=== PATIENT | male | born 1955 | race Two or more races ===

== ENCOUNTER 2022-04-17 15:06 | Inpatient (IN) | payer MEDICARE, MEDICAID ==
[~2022-04-17] VITALS: Ht 165.1 cm; Wt 67.5 kg
[2022-04-17] MEDS ORDERED: DexAMETHasone SOD PHOS 10MG/1ML VIAL INJ IV ONE (15:30)
[2022-04-17] MEDS ORDERED: FUROSEMIDE 40 MG/4 ML VIAL IV ONE (15:30)
[2022-04-17] MEDS ORDERED: ALBUTEROL SULF 2.5 MG/0.5ML(0.5%) NEB SOLN HHN ONE (15:30)
[2022-04-17] MEDS ORDERED: levoFLOXacin 750MG 150 ML IV ONE (15:45)
[2022-04-17 16:26] LABS: Basophils # (auto) 0.1 10 ^3/uL (0-0.2); Basophils % (auto) 1.1 % (0.0-2.0); Eosinophils # (auto) 0.1 10 ^3/uL (0-0.8); Eosinophils % (auto) 0.9 % (0.0-7.0); Hematocrit 31.4 % (41.0-53.0); Hemoglobin 10.7 g/dL (13.5-17.5); Lymphocytes # (auto) 0.4 10 ^3/uL (0.4-5.4); Lymphocytes % (auto) 5.9 % (10.0-50.0); Mean Corpuscular Hgb Conc. 34.2 g/dL (32.0-36.0); Mean Corpuscular Volume 96.5 fL (80.0-100.0); Monocytes # (auto) 0.3 10 ^3/uL (0-1.3); Neutrophils # (auto) 5.9 10 ^3/uL (1.6-8.6); Neutrophils % (auto) 87.1 % (37.0-80.0); Red Blood Cells 3.25 10^6/uL (4.5-5.90); Red Cell Distribution Width 16.8 % (11.8-14.3); White Blood Cell 6.7 10^3/uL (4.4-10.8)
[2022-04-17 16:40] LABS: Albumin 3.5 g/dL (3.4-5.0); Calcium 8.9 mg/dL (8.5-10.1); Magnesium 2.2 mg/dL (1.6-2.6)
[2022-04-17 16:45] LABS: BUN/Creatinine Ratio 7.2; Bilirubin, Total 0.7 mg/dL (0.2-1.0); Total Protein 6.7 g/dL (6.4-8.2)
[2022-04-17] MEDS ORDERED: hydrALAZINE HCL 20 MG/ML VL IV ONE (18:00)
[2022-04-17] MEDS ORDERED: NITROGLYCERIN 0.4 MG SL TAB SL PRN (20:30)
[2022-04-17] MEDS ORDERED: ONDANSETRON HCL 4 MG/2 ML VIAL IV PRN (20:30)
[2022-04-17] MEDS ORDERED: HYDROcodone-ACET 5/325MG TAB PO PRN (20:30)
[2022-04-17] MEDS ORDERED: DEXTROSE (50%) 50ML SYRG IV PRN (20:30)
[2022-04-17] MEDS ORDERED: ACETAMINOPHEN 325 MG TAB PO PRN (20:30)
[2022-04-17] MEDS ORDERED: MORPHINE SULFATE INJ 2 MG/ml SYRG IV PRN (20:30)
[2022-04-17] MEDS ORDERED: NIFE-3 (20:34)
[2022-04-17] MEDS ORDERED: HYDR50TA15 PO (20:34)
[2022-04-17] MEDS ORDERED: FERR1TAB8 PO (20:34)
[2022-04-17] MEDS ORDERED: PANT40TA57 PO (20:34)
[2022-04-17] MEDS ORDERED: CLON0.1T PO (20:34)
[2022-04-17] MEDS ORDERED: MIN25T PO (20:34)
[2022-04-17] MEDS ORDERED: B-CO-5 PO (20:34)
[2022-04-17] MEDS ORDERED: LOSA-39 PO (20:34)
[2022-04-17] MEDS ORDERED: CARV12.544 PO (20:34)
[2022-04-17 22:12] LABS: Magnesium 2.1 mg/dL (1.6-2.6)
[2022-04-17] MEDS: ACCU-CHEK COMFORT CURVE STRIP VI SCH (22:19)
[2022-04-17 22:21] LABS: CRP High Sensitivity 1.93 mg/dL (< 0.3)
[2022-04-17] MEDS: hydrALAZINE HCL 25 MG TAB PO SCH (22:29)
[2022-04-17] MEDS: CARVEDILOL 12.5 MG TAB PO SCH (22:29)
[2022-04-17] MEDS: HEPARIN SODIUM (PORCINE) 5000 UNITS/ML 1ML VIAL SC SCH (22:31)
[2022-04-17] MEDS: InsuLIN REG 1unit/0.01ml Soln (100units/ml) SC SCH (22:33)
[2022-04-17 22:45] VITALS: BP 177/74
[2022-04-18 04:31] LABS: Anion Gap 13 (5-15); BUN/Creatinine Ratio 7.3; Blood Urea Nitrogen 37 mg/dL (7-18); Calcium 8.6 mg/dL (8.5-10.1); Carbon Dioxide 27 mmol/L (21-32); Chloride 96 mmol/L (98-107); GFR African American 15 mL/min; GFR Non-African American 12 mL/min; Glucose 132 mg/dL (74-106); Potassium 3.4 mmol/L (3.5-5.1); Sodium 136 mmol/L (136-145)
[2022-04-18 04:34] LABS: Alanine Aminotransferase 19 U/L (16-61); Alkaline Phosphatase 76 U/L (45-117); Aspartate Aminotransferase 52 U/L (15-37); Bilirubin, Total 0.5 mg/dL (0.2-1.0); Total Protein 6.3 g/dL (6.4-8.2)
[2022-04-18 05:20] LABS: Basophils # (auto) 0 10 ^3/uL (0-0.2); Basophils % (auto) 0.2 % (0.0-2.0); Eosinophils # (auto) 0 10 ^3/uL (0-0.8); Eosinophils % (auto) 0.1 % (0.0-7.0); Hematocrit 29.6 % (41.0-53.0); Hemoglobin 10.1 g/dL (13.5-17.5); Lymphocytes # (auto) 0.5 10 ^3/uL (0.4-5.4); Lymphocytes % (auto) 8.3 % (10.0-50.0); Mean Corpuscular Hemoglobin 32.7 pg (28.0-32.0); Mean Corpuscular Hgb Conc. 34.1 g/dL (32.0-36.0); Mean Corpuscular Volume 95.7 fL (80.0-100.0); Monocytes # (auto) 0.3 10 ^3/uL (0-1.3); Monocytes % (auto) 5.3 % (0.0-12.0); Neutrophils # (auto) 4.9 10 ^3/uL (1.6-8.6); Neutrophils % (auto) 86.1 % (37.0-80.0); Red Blood Cells 3.09 10^6/uL (4.5-5.90); Red Cell Distribution Width 16.6 % (11.8-14.3); White Blood Cell 5.7 10^3/uL (4.4-10.8)
[2022-04-18] MEDS: ACCU-CHEK COMFORT CURVE STRIP VI SCH ×4 (06:42→22:08)
[2022-04-18] MEDS: InsuLIN REG 1unit/0.01ml Soln (100units/ml) SC SCH ×4 (06:42→22:09)
[2022-04-18] MEDS: hydrALAZINE HCL 25 MG TAB PO SCH ×3 (07:03→21:54)
[2022-04-18] MEDS: HEPARIN SODIUM (PORCINE) 5000 UNITS/ML 1ML VIAL SC SCH (07:06)
[2022-04-18] MEDS ORDERED: HEPARIN SODIUM (PORCINE) 5000 UNITS/ML 1ML VIAL IV ONE ×2 (07:45→10:45)
[2022-04-18] MEDS ORDERED: HEPARIN DRIP/D5W 100UNITS/ML 250 ML IV SCH (07:45)
[2022-04-18 08:24] LABS: Basophils # (auto) 0 10 ^3/uL (0-0.2); Basophils % (auto) 0.6 % (0.0-2.0); Eosinophils # (auto) 0 10 ^3/uL (0-0.8); Hematocrit 29.7 % (41.0-53.0); Hemoglobin 10.5 g/dL (13.5-17.5); Lymphocytes # (auto) 0.5 10 ^3/uL (0.4-5.4); Lymphocytes % (auto) 8.7 % (10.0-50.0); Mean Corpuscular Hemoglobin 33.7 pg (28.0-32.0); Mean Corpuscular Hgb Conc. 35.3 g/dL (32.0-36.0); Mean Corpuscular Volume 95.3 fL (80.0-100.0); Monocytes # (auto) 0.4 10 ^3/uL (0-1.3); Monocytes % (auto) 7.1 % (0.0-12.0); Neutrophils # (auto) 5.2 10 ^3/uL (1.6-8.6); Neutrophils % (auto) 83.6 % (37.0-80.0); Nucleated Red Blood Cells % 0.1 %; Red Blood Cells 3.12 10^6/uL (4.5-5.90); Red Cell Distribution Width 16.5 % (11.8-14.3); White Blood Cell 6.2 10^3/uL (4.4-10.8)
[2022-04-18] MEDS: BUDESONIDE (INHALATION) 180 MCG IH IN SCH ×2 (09:07→20:18)
[2022-04-18] MEDS: ALBUTEROL SULF HFA 90MCG INH 200DOSE IN PRN ×2 (09:07→20:19)
[2022-04-18] MEDS ORDERED: POTASSIUM CHL 20 Meq TABLET PO ONE (09:45)
[2022-04-18 09:58] LABS: INR 1.2 (0.9-1.15); Partial Thromboplastin Time 35.7 sec (24.6-33.4)
[2022-04-18] MEDS: CARVEDILOL 12.5 MG TAB PO SCH ×2 (11:47→21:55)
[2022-04-18] MEDS: PANTOPRAZOLE 40 MG TAB PO SCH (11:47)
[2022-04-18] MEDS: B-COMPLEX W/ C & FOLIC ACID(NEPHROVITE TAB) PO SCH (11:47)
[2022-04-18] MEDS: FERROUS SULFATE 325mg EC TAB PO SCH (11:47)
[2022-04-18] MEDS: ZINC SULFATE 220mg CAP or TAB PO SCH (11:48)
[2022-04-18] MEDS: DexAMETHasone SOD PHOS 10MG/1ML VIAL INJ IV SCH (11:48)
[2022-04-18] MEDS: ASCORBIC ACID 1,000 MG TAB PO SCH (11:48)
[2022-04-18] MEDS: CHOLECALCIFEROL (VITD3) 2,000 UNIT CAP/TAB PO SCH (11:48)
[2022-04-18] MEDS: LOSARTAN POTASSIUM 50 MG TAB PO SCH (11:48)
[2022-04-18] MEDS: AZITHROMYCIN 500MG/ 250ML 250 ML IV SCH (11:49)
[2022-04-18] MEDS: MINOXIDIL 2.5 MG TAB PO SCH (11:49)
[2022-04-18] MEDS: cloNIDine HCL 0.1 MG TAB PO SCH (11:49)
[2022-04-18 12:00] VITALS: BP 166/65
[2022-04-18 12:20] VITALS: BP 166/65
[2022-04-18 12:35] VITALS: BP 166/65
[2022-04-18 16:38] VITALS: BP 154/74
[2022-04-18] MEDS ORDERED: ASPirin 325 MG TAB PO ONE (17:00)
[2022-04-18 20:00] VITALS: BP 152/72
[2022-04-18 20:51] LABS: INR 1.19 (0.9-1.15); Partial Thromboplastin Time 38.1 sec (24.6-33.4)
[2022-04-18 21:24] VITALS: BP 152/72
[2022-04-18] MEDS: HEPARIN DRIP/D5W 100UNITS/ML 250 ML IV SCH (21:53)
[2022-04-19] VITALS (7 sets, daily range): BP systolic 133–156; BP diastolic 45–79
[2022-04-19 03:09] LABS: Basophils # (auto) 0 10 ^3/uL (0-0.2); Basophils % (auto) 0.5 % (0.0-2.0); Eosinophils # (auto) 0 10 ^3/uL (0-0.8); Hematocrit 27.5 % (41.0-53.0); Hemoglobin 9.4 g/dL (13.5-17.5); Lymphocytes # (auto) 0.6 10 ^3/uL (0.4-5.4); Lymphocytes % (auto) 9.4 % (10.0-50.0); Monocytes # (auto) 0.5 10 ^3/uL (0-1.3); Monocytes % (auto) 7.6 % (0.0-12.0); Neutrophils # (auto) 5.4 10 ^3/uL (1.6-8.6); Neutrophils % (auto) 82.5 % (37.0-80.0); Red Blood Cells 2.84 10^6/uL (4.5-5.90); Red Cell Distribution Width 16.9 % (11.8-14.3); White Blood Cell 6.6 10^3/uL (4.4-10.8)
[2022-04-19 03:26] LABS: INR 1.18 (0.9-1.15); Partial Thromboplastin Time 43.3 sec (24.6-33.4)
[2022-04-19] MEDS: HEPARIN DRIP/D5W 100UNITS/ML 250 ML IV SCH (04:00)
[2022-04-19] MEDS ORDERED: HEPARIN DRIP/D5W 100UNITS/ML 250 ML IV SCH ×2 (05:15→11:30)
[2022-04-19] MEDS: hydrALAZINE HCL 25 MG TAB PO SCH ×3 (06:15→23:01)
[2022-04-19] MEDS: ACCU-CHEK COMFORT CURVE STRIP VI SCH ×4 (06:15→23:02)
[2022-04-19] MEDS: InsuLIN REG 1unit/0.01ml Soln (100units/ml) SC SCH ×4 (06:18→22:49)
[2022-04-19] MEDS: ALBUTEROL SULF HFA 90MCG INH 200DOSE IN PRN ×2 (06:57→20:12)
[2022-04-19] MEDS: BUDESONIDE (INHALATION) 180 MCG IH IN SCH ×2 (06:57→20:12)
[2022-04-19] MEDS ORDERED: SODIUM CHL 0.9% 1000 ML BAG XX ONE (07:00)
[2022-04-19] MEDS ORDERED: IOHEXOL 350 MG/ML 100ML IJ ONE (08:01)
[2022-04-19] MEDS: AZITHROMYCIN 500MG/ 250ML 250 ML IV SCH (10:01)
[2022-04-19 10:02] LABS: INR 1.17 (0.9-1.15); Partial Thromboplastin Time 46.3 sec (24.6-33.4)
[2022-04-19] MEDS: PANTOPRAZOLE 40 MG TAB PO SCH (10:02)
[2022-04-19] MEDS: DexAMETHasone SOD PHOS 10MG/1ML VIAL INJ IV SCH (10:02)
[2022-04-19] MEDS: CHOLECALCIFEROL (VITD3) 2,000 UNIT CAP/TAB PO SCH (10:02)
[2022-04-19] MEDS: ZINC SULFATE 220mg CAP or TAB PO SCH (10:02)
[2022-04-19] MEDS: FERROUS SULFATE 325mg EC TAB PO SCH (10:02)
[2022-04-19] MEDS: B-COMPLEX W/ C & FOLIC ACID(NEPHROVITE TAB) PO SCH (10:02)
[2022-04-19] MEDS: ASPirin 81 mg TAB PO SCH (10:03)
[2022-04-19] MEDS: cloNIDine HCL 0.1 MG TAB PO SCH (10:03)
[2022-04-19] MEDS: LOSARTAN POTASSIUM 50 MG TAB PO SCH (10:03)
[2022-04-19] MEDS: ASCORBIC ACID 1,000 MG TAB PO SCH (10:03)
[2022-04-19] MEDS: MINOXIDIL 2.5 MG TAB PO SCH (10:04)
[2022-04-19] MEDS: CARVEDILOL 12.5 MG TAB PO SCH ×2 (10:04→23:01)
[2022-04-19 18:53] LABS: INR 1.11 (0.9-1.15)
[2022-04-19 19:03] LABS: Partial Thromboplastin Time 74.5 sec (24.6-33.4)
[2022-04-19] MEDS ORDERED: ATORVASTATIN 20 MG TAB PO SCH (22:00)
[2022-04-19 23:36] LABS: INR 1.09 (0.9-1.15); Partial Thromboplastin Time 29.3 sec (24.6-33.4)
[2022-04-20] MEDS ORDERED: HEPARIN DRIP/D5W 100UNITS/ML 250 ML IV SCH ×3 (00:15→10:30)
[2022-04-20] MEDS ORDERED: HEPARIN SODIUM (PORCINE) 5000 UNITS/ML 1ML VIAL IV ONE ×2 (00:15)
[2022-04-20 05:00] VITALS: BP 163/81
[2022-04-20] MEDS: InsuLIN REG 1unit/0.01ml Soln (100units/ml) SC SCH ×2 (06:14→12:33)
[2022-04-20] MEDS: hydrALAZINE HCL 25 MG TAB PO SCH (06:20)
[2022-04-20] MEDS: ACCU-CHEK COMFORT CURVE STRIP VI SCH ×2 (06:22→12:26)
[2022-04-20] MEDS: BUDESONIDE (INHALATION) 180 MCG IH IN SCH (06:35)
[2022-04-20] MEDS: ALBUTEROL SULF HFA 90MCG INH 200DOSE IN PRN (06:54)
[2022-04-20 08:30] VITALS: BP 152/74
[2022-04-20 09:00] VITALS: BP 152/74
[2022-04-20] MEDS: FERROUS SULFATE 325mg EC TAB PO SCH (09:19)
[2022-04-20] MEDS: CHOLECALCIFEROL (VITD3) 2,000 UNIT CAP/TAB PO SCH (09:20)
[2022-04-20] MEDS: ASPirin 81 mg TAB PO SCH (09:20)
[2022-04-20] MEDS: CARVEDILOL 12.5 MG TAB PO SCH (09:20)
[2022-04-20] MEDS: B-COMPLEX W/ C & FOLIC ACID(NEPHROVITE TAB) PO SCH (09:20)
[2022-04-20] MEDS: cloNIDine HCL 0.1 MG TAB PO SCH (09:21)
[2022-04-20] MEDS: LOSARTAN POTASSIUM 50 MG TAB PO SCH (09:21)
[2022-04-20] MEDS: ZINC SULFATE 220mg CAP or TAB PO SCH (09:22)
[2022-04-20] MEDS: DexAMETHasone SOD PHOS 10MG/1ML VIAL INJ IV SCH (09:22)
[2022-04-20] MEDS: ASCORBIC ACID 1,000 MG TAB PO SCH (09:22)
[2022-04-20] MEDS: PANTOPRAZOLE 40 MG TAB PO SCH (09:22)
[2022-04-20] MEDS: AZITHROMYCIN 500MG/ 250ML 250 ML IV SCH (09:22)
[2022-04-20] MEDS: MINOXIDIL 2.5 MG TAB PO SCH (09:23)
[2022-04-20 09:50] LABS: INR 1.17 (0.9-1.15)
[2022-04-20 09:53] LABS: Partial Thromboplastin Time > 139.0 sec (24.6-33.4)
== END 2022-04-20 13:25 | disposition left against medical advice (07) | DRG 177 ==
LOC: ER 15:06 → EDBD 15:06 → TELE 20:29 → TELE-EAST 04-18 11:39
PROVIDERS: ADMIT Nurse Practitioner; ATTEND Nurse Practitioner
PROC: 5A1D70Z Performance of Urinary Filtration, Intermittent, Less than 6 Hours Per Day (ICD-10-PCS; principal; 2022-04-19)
DX: U07.1 COVID-19 (principal); J12.82 Pneumonia due to coronavirus disease 2019; J96.01 Acute respiratory failure with hypoxia; N18.6 End stage renal disease; I12.0 Hypertensive chronic kidney disease with stage 5 chronic kidney disease or end stage renal disease; I16.1 Hypertensive emergency; J98.11 Atelectasis; D63.1 Anemia in chronic kidney disease; D69.6 Thrombocytopenia, unspecified; R79.89 Other specified abnormal findings of blood chemistry; R77.8 Other specified abnormalities of plasma proteins; Z53.29 Procedure and treatment not carried out because of patient's decision for other reasons; Z20.822 Contact with and (suspected) exposure to COVID-19; E03.9 Hypothyroidism, unspecified; E11.22 Type 2 diabetes mellitus with diabetic chronic kidney disease; E11.65 Type 2 diabetes mellitus with hyperglycemia; E78.5 Hyperlipidemia, unspecified; E87.6 Hypokalemia; Z79.4 Long term (current) use of insulin; Z79.899 Other long term (current) drug therapy; Z83.3 Family history of diabetes mellitus; Z86.73 Personal history of transient ischemic attack (TIA), and cerebral infarction without residual deficits; Z90.49 Acquired absence of other specified parts of digestive tract; Z99.2 Dependence on renal dialysis
CPT/HCPCS: 36415; 36600; 71045; 71275; 80053; 82805; 82962; 83605; 83615; 83735; 83880; 84443; 84484; 85025; 85379; 85610; 85730; 86141; 87040; 87081; 87426; 87804; 90935; 93005; 93306; 93970; 94640; 96365; 96375; G0378; J1100; J1815; J1956